=== PATIENT | male | born 1980 | race American Indian/Alaskan Native ===

== ENCOUNTER 2019-03-28 10:21 | Emergency (ER) | payer OTHER ==
[2019-03-28 10:41] VITALS: BP 125/70
--- NOTE | 2019-03-28 13:51 | Emergency Department Report ---
Minor Respiratory - HPI Chief Complaint: Upper Respiratory Infection Stated Complaint: BODY WEAK Time Seen by Provider: 03/28/19 13:05 Duration: 4 Days Pain Location: Nose Severity: mild Minor Respiratory: Yes Rhinorrhea, Yes Able to Tolerate Fluids, Yes Cough, Yes Sick Contacts, Yes Fever, No Sore Throat, No Ear Pain, No Hemoptysis, No Chest Pain, No Shortness of Breath Other History: This is a 39-year-old -[place] male who presents to the emergency room with a cough and body aches for 4 days. Patient states his spouse gave him TheraFlu for the past 3 days which improved cough but he continues to have body aches and chills. He denies receiving the influenza vaccine. No significant past medical history. Nonsmoker. He denies chest pain, palpitations, wheezing, shortness of breath, diaphoresis, weakness, nausea, vomiting, or diarrhea. ED Review of Systems ROS: Stated complaint: BODY WEAK Other details as noted in HPI Constitutional: chills. denies: fever ENT: congestion. denies: ear pain, throat pain Respiratory: cough. denies: shortness of breath, wheezing Cardiovascular: denies: chest pain, palpitations Gastrointestinal: denies: abdominal pain, nausea, diarrhea Musculoskeletal: myalgia. denies: back pain, joint swelling, arthralgia Skin: denies: rash, lesions Neurological: denies: headache, weakness, paresthesias Psychiatric: denies: anxiety, depression ED Past Medical Hx - Past Medical History Previous Medical History?: No - Surgical History Past Surgical History?: Yes Additional Surgical History: ABD SURGERY A CHILD - Medications Home Medications: Home Medications Medication Instructions Recorded Confirmed Last Taken Type Benzonatate [Tessalon Perles] 100 mg PO Q8HR PRN #30 capsule 03/28/19 Unknown Rx Minor Respiratory Exam - Exam General: Vital signs noted. No distress. Alert and acting appropriately. HEENT: Yes Moist Mucous Membranes, Yes Rhinorrhea (days, congested with clear discharge), No Pharyngeal Erythema, No Pharyngeal Exudates, No Conjuctival Injection, No Frontal Tenderness, No Maxillary Tenderness Ear: Neither TM Bulge, Neither TM Erythema, Neither EAC Pain, Neither EAC Discharge Neck: Yes Supple, No Adenopathy Lungs: Yes Good Air Exchange, No Wheezes, No Ronchi, No Stridor, No Cough, No Labored Respirations, No Retractions, No Use of Accessory Muscles, No Other Abnormal Lung Sounds Heart: Yes Regular, No Murmur Abdomen: Yes Normal Bowel Sounds, No Tenderness, No Peritoneal Signs Skin: No Rash, No Edema Neurologic: Alert and oriented, no deficits. Musculoskeletal: Unremarkable. ED Course Vital Signs 03/28/19 10:40 Temperature 99.1 F Pulse Rate 76 Respiratory 18 Rate Blood Pressure 125/70 [Left] O2 Sat by Pulse 100 Oximetry ED Medical Decision Making - Medical Decision Making 39 y.o. male that presents with URI symptoms. Patient examined by me and stable. No distress noted. Vitals normal. Otherwise healthy patient presenting with constellation of symptoms likely representing uncomplicated viral upper respiratory symptoms. Denies sore throat, dysphagia, chest pain, shortness of breath, fever, vomiting, or diarrhea. Low suspicion for bacterial sinusitis or pneumonia given exam and history. Start Tessalon Perles. Instructed to take ibuprofen, naproxen, or Tylenol for body aches. No overt indications at this time for antibiotics. No respiratory distress, otherwise relatively well appearing and nontoxic. Will discuss prompt follow up with PMD and strict return precautions. Discharged home stable. Critical care attestation.: If time is entered above; I have spent that time in minutes in the direct care of this critically ill patient, excluding procedure time. ED Disposition Clinical Impression: Chills (without fever) Upper respiratory infection Qualifiers: URI type: acute nasopharyngitis (common cold) Qualified Code(s): J00 - Acute nasopharyngitis [common cold] Disposition: TO HOME OR SELFCARE Is pt being admited?: No Condition: Stable Instructions: Cold Symptoms (ED), Upper Respiratory Infection (ED) Additional Instructions: Increase fluid intake and rest. Wash hands frequently. Continue taking Tylenol or ibuprofen to control fever and pain. Continue taking [id number] cold and flu medications to suppress symptoms. F/U with Primary Care Provider. Return to ER if fever, shortness of breath, or difficulty breathing after 48 hours of supportive care. Prescriptions: Benzonatate [Tessalon Perles] 100 mg PO Q8HR PRN #30 capsule PRN Reason: Cough Referrals: REJI ANTONIO MD [Primary Care Provider] - 3-5 Days Forms: Work/School Release Form(ED) Time of Disposition: 13:53
== END 2019-03-28 14:11 | disposition home or self-care (01) ==
LOC: ED 10:21
DX: J06.9 Acute upper respiratory infection, unspecified (principal)
CPT/HCPCS: 99282